=== PATIENT | female | born 1965 | race Caucasian/White ===

== ENCOUNTER 2018-02-27 16:46 | Emergency (ER) | payer OTHER ==
[~2018-02-27] VITALS: Ht 162.6 cm; Wt 81.7 kg
[2018-02-27] MEDS ORDERED: BENADRYL25 MG PO (17:46)
== END 2018-02-27 18:08 | disposition home or self-care (01) ==
LOC: ED 16:46
DX: T88.6XXA Anaphylactic reaction due to adverse effect of correct drug or medicament properly administered, initial encounter (principal)
CPT/HCPCS: 94640; 96372; 96374; 96375; 99283; J1200; J2930; J7030